=== PATIENT | female | born 1940 | race Caucasian/White ===

== ENCOUNTER → 2016-06-05 19:00 | Outpatient (CLI) | payer MEDICARE, BC ==
[2016-06-05 19:48] LABS: T4 THYROXINE 16.6 ug/dL (4.7-13.3); THYROID STIMULATING HORMONE 0.29 uIU/mL (0.36-3.74)
== END | disposition home or self-care (01) ==
LOC: D.LABREF 19:00
PROVIDERS: Internal Medicine Interventional Cardiology
DX: R53.83 Other fatigue (principal)

== ENCOUNTER 2016-06-17 10:00 | Emergency (ER) | payer MEDICARE, BC ==
[2016-06-17 10:46] LABS: BASOPHILS 0.3 % (0.0-2.0); EOSINOPHILS 1.9 % (0-7); HEMATOCRIT 42.1 % (36.0-48.0); HEMOGLOBIN 13.8 g/dL (12-16); IMMATURE GRANULOCYTES 0.1 % (0-5); LYMPHOCYTES 22.3 % (15-50); MCH 31.2 pg (26.0-34.0); MCHC 32.8 g/dL (31.0-37.0); MONOCYTES 9.4 % (2-11); PLATELET COUNT 203 10x3/uL (130-400); RBC 4.43 10x6/uL (4.00-5.40); RDW 13.8 % (11.5-14.5); WBC 7.9 10x3/uL (4.8-10.8)
[2016-06-17 11:03] LABS: ALBUMIN 3.8 g/dL (3.4-5.0); ANION GAP 11.9 mmol/L (8-16); BILIRUBIN - TOTAL 0.52 mg/dL (0.2-1.3); CALCIUM 8.7 mg/dL (8.5-10.1); CARBON DIOXIDE 28.3 mmol/L (21.0-32.0); CREATININE - SERUM 1.4 mg/dL (0.6-1.3); POTASSIUM - SERUM 4.2 mmol/L (3.5-5.1); PROTEIN - SERUM 6.8 g/dL (6.4-8.2)
[2016-06-17 11:48] LABS: APTT 25.5 SECONDS (22.8-39.4); INR 0.94 (0.85-1.17); PROTIME 12.5 SECONDS (11.6-15.0)
== END 2016-06-17 13:53 | disposition home or self-care (01) ==
LOC: D.ER 10:00
PROVIDERS: Emergency Medicine
DX: I63.9 Cerebral infarction, unspecified (principal); I10 Essential (primary) hypertension; R00.1 Bradycardia, unspecified

== ENCOUNTER → 2016-08-15 16:51 | Outpatient (CLI) | payer MEDICARE, BC ==
[2016-08-15 17:23] LABS: ANION GAP 14.7 mmol/L (8-16); CALCIUM 9.2 mg/dL (8.5-10.1); CARBON DIOXIDE 27.5 mmol/L (21.0-32.0); CREATININE - SERUM 1.4 mg/dL (0.6-1.3); T4 THYROXIN - FREE 2.22 ng/dL (0.76-1.46); T4 THYROXINE 17.9 ug/dL (4.7-13.3); THYROID STIMULATING HORMONE 0.22 uIU/mL (0.36-3.74)
[2016-08-15 17:42] LABS: POTASSIUM - SERUM 6.2 mmol/L (3.5-5.1)
== END | disposition home or self-care (01) ==
LOC: D.LABREF 16:51
PROVIDERS: Internal Medicine Interventional Cardiology
DX: I10 Essential (primary) hypertension (principal); I48.91 Unspecified atrial fibrillation